=== PATIENT | female | born 1965 | race Caucasian/White ===

== ENCOUNTER → 2016-11-26 | Day surgery (SDC) | payer OTHER ==
[~2016-11-26] MED LIST: ESTRACE PO; FISH OIL GUMMI1 EACH PO; FLONASE 0.05% N16 G1; I-CAPS AREDS S1 EACH PO; LASTACAFT3 ML OU; MAXALT MLT10 MG PO; MELATIN3 MG PO; MULTI VITAMIN1 EACH PO; RESTASIS MULTI5.5 ML OU; SIMVASTATIN40 MG PO; TOPAMAX PO; ZYRTEC PO
--- NOTE | ~2016-11-26 | OR ---
Unit #: [id number] #: [id number] Patient: MIGDALIA JENSEN [id number] [address] [address] [id number] O MR#: [id number] NAME: MIGDALIA JENSEN ROOM: Date of Procedure: 11/26/2016 Admission Date: 11/26/2016 Surgeon: Spike Bell M.D. : 1965 Attending Physician: Spkie Bell M.D. Primary Care Physician: Kody Reyes M.D. OPERATIVE REPORT PREOPERATIVE DIAGNOSIS Screening colonoscopy. POSTOPERATIVE DIAGNOSIS Screening colonoscopy. PROCEDURE PERFORMED Colonoscopy to cecum. ANESTHESIA Monitored anesthesia care. FINDINGS The patient was found to have sigmoid diverticulosis as well as mild internal hemorrhoids. SPECIMENS None. COMPLICATIONS None apparent. CONDITION The patient tolerated the procedure well. INDICATIONS FOR PROCEDURE The patient is a 51-year-old white female, who presents at this time for evaluation by screening colonoscopy. DESCRIPTION OF PROCEDURE After obtaining informed consent, the patient was brought to the endoscopy suite and after adequate monitored anesthesia care, had the colonoscope placed through the anus and slowly advanced to the level of the cecum without difficulty and with the lumen always in view. The cecum was normal as was the ileocecal valve. The ascending colon was normal as was the hepatic flexure, transverse colon, splenic flexure, and descending colon. The sigmoid colon was normal other than a moderate number of diverticula. The rectosigmoid and rectum were all within normal limits. On retroflexing in the rectum to the anorectal junction, the patient was found to have some mild internal hemorrhoids. The scope was removed without difficulty. On digital examination, there was good sphincter tone, no masses palpable. The patient went from the endoscopy suite to Unit #: [id number] #: [id number] Patient: MIGDALIA JENSEN the recovery area in stable condition. RECOMMENDATIONS Diverticular sheet given. High-fiber diet, lots of liquids, tucks or wipes p.r.n. Follow up as needed. Dictated by... Eric Lynch/craig TD: 11/26/2016 14:18 JOB #: [id number] CC: [facility] OPERATIVE REPORT Page 1 of 1 X Spike Bell MD PROCEDURE OPERATIVE NOTE
== END | disposition home or self-care (01) ==
LOC: COPS 10:01
PROVIDERS: Surgery
PROC: 0DJD8ZZ Inspection of Lower Intestinal Tract, Via Natural or Artificial Opening Endoscopic (ICD-10-PCS; principal; 2016-11-26 12:00)
DX: Z12.11 Encounter for screening for malignant neoplasm of colon (principal); K57.30 Diverticulosis of large intestine without perforation or abscess without bleeding; K64.8 Other hemorrhoids; K21.9 Gastro-esophageal reflux disease without esophagitis; G43.909 Migraine, unspecified, not intractable, without status migrainosus; I10 Essential (primary) hypertension; Z87.19 Personal history of other diseases of the digestive system; F41.9 Anxiety disorder, unspecified; R73.9 Hyperglycemia, unspecified; H91.3 Deaf nonspeaking, not elsewhere classified; Z82.49 Family history of ischemic heart disease and other diseases of the circulatory system; Z83.3 Family history of diabetes mellitus; Z88.7 Allergy status to serum and vaccine; Z90.49 Acquired absence of other specified parts of digestive tract; Z90.710 Acquired absence of both cervix and uterus